=== PATIENT | male | born 1945 | race Caucasian/White ===

== ENCOUNTER 2021-11-08 09:16 | Emergency (ER) | payer MEDICARE ==
[2021-11-08] MEDS ORDERED: Sodium Chloride 0.9% 1000 ML 1,000 ML IV STA (09:41)
--- NOTE | 2021-11-08 09:47 | ERPHSYRPT ---
- History of Present Illness Historian: patient Exam Limitations: no limitations Patient Subjective Stated Complaint: Pt states "I have had diarrhea for awhile now and the left side of my belly just hurts." Triage Nursing Assessment: PT presented alert and oriented X 3, skin wpd Pt ambulates with an upright steady gait, able to speak in clear full sentences pt in no apparent respiratory distress. Physician History: 76 yo wm w generalized abdominal pain x 1 wk which is worse in LUQ and rated 8/10 but has been up to 10. Pain is described as pressure/cramping and is worse w movement. He has had diarrhea [id number]. Pt denies nausea/vomiting/fever/chest pain/cough/coryza/melena/hematochezia/dysuria/hematuria. He was told in the past that he had gallstones. He has been fully vaccinated w booster for CV19. Timing/Duration: other (1wk) Activities at Onset: rest Quality: cramping, pressure Abdominal Pain Onset Location: LLQ, generalized abdomen Pain Radiation: no radiation Severity of Pain-Max: severe Severity of Pain-Current: severe Modifying Factors: Improves With: movement (Worse w movement) Associated Symptoms: diarrhea ([id number]), No back, No chest pain, No diaphoresis, No fever/chills, No fatigue, No headache, No heartburn, No loss of appetite, No nausea, No neck pain, No rash, No shortness of breath, No syncope, No vomiting, No weakness Previous symptoms: no prior history Allergies/Adverse Reactions: crab Allergy (Severe, Verified 11/08/21 09:31) Swelling iodine Allergy (Severe, Verified 11/08/21 09:31) Swelling Home Medications: Theophylline Anhydrous 300 mg* [Theodur 300MG] 300 mg PO BID 11/08/21 [History] Hx Tetanus, Diphtheria Vaccination/Date Given: No Hx Influenza Vaccination/Date Given: Yes Hx Pneumococcal Vaccination/Date Given: No Immunizations Up to Date: Yes Travel Risk - International Travel Have you traveled outside of the country in past 3 weeks: No - Coronavirus Screening Are you exhibiting any of the following symptoms?: Yes Symptoms: Vomiting/Diarrhea - Vaccine Status Have you recieved a Covid-19 vaccination: Yes Mine [employer]: Moderna - Vaccination Dates Date of 2cond Vaccination (if applicable): 01/2021 Comment: booster in september 2021 - Review of Systems Constitutional: No Symptoms Eyes: No Symptoms Ears, Nose, & Throat: No Symptoms Respiratory: No Symptoms Cardiac: No Symptoms Abdominal/Gastrointestinal: No Symptoms, Abdominal Pain, Diarrhea Genitourinary Symptoms: No Symptoms Musculoskeletal: No Symptoms Skin: No Symptoms Neurological: No Symptoms Psychological: No Symptoms Endocrine: No Symptoms Hematologic/Lymphatic: No Symptoms Immunological/Allergic: No Symptoms - Past Medical History Pertinent Past Medical History: Yes Neurological History: No Pertinent History ENT History: No Pertinent History Cardiac History: Hypertension Respiratory History: Asthma, COPD Endocrine Medical History: No Pertinent History Musculoskeletal History: Arthritis GI Medical History: GERD, Gallbladder Disease History: Other Psycho-Social History: No Pertinent History Male Reproductive Disorders: No Pertinent History Other Medical History: prostate cancer - Past Surgical History Past Surgical History: Yes Other Surgical History: prostate - Social History Smoking Status: Former smoker Exposure to second hand smoke: Yes Drug Use: none Patient Lives Alone: No Significant Family History: no pertinent family hx - Nursing Vital Signs Nursing Vital Signs: Initial Vital Signs Temperature 98.6 F 11/08/21 09:24 Pulse Rate 120 H 11/08/21 09:24 Respiratory Rate 24 11/08/21 09:24 Blood Pressure 99/71 11/08/21 09:24 O2 Sat by Pulse Oximetry 98 11/08/21 09:24 Pain Scale Pain Intensity 0 Tachy/systolic 99 - Physical Exam General Appearance: no apparent distress Eye Exam: PERRL/EOMI, eyes nml inspection Ears, Nose, Throat Exam: normal ENT inspection, TMs normal, pharynx normal, moist mucous membranes Neck Exam: normal inspection, non-tender, supple, full range of motion, No meningismus, No mass, No Brudzinski, No Kernig's, No carotid bruit Respiratory Exam: airway intact, wheezing (Occ B), No respiratory distress Cardiovascular Exam: tachycardia, No murmur Gastrointestinal/Abdomen Exam: soft, tenderness (Diffuse, worse LUQ), No distention Back Exam: normal inspection, normal range of motion Extremity Exam: normal inspection, normal range of motion Neurologic Exam: alert, oriented x 3, cooperative, netezza developer II-XII nml as tested, normal mood/affect, sensation nml Skin Exam: normal color, warm Lymphatic Exam: No adenopathy SpO2 Interpretation: normal SpO2: 98 O2 Delivery: Room Air - Course Nursing assessment & vital signs reviewed: Yes EKG Interpreted by Me: RATE (Sinus tach/R100/Normal QT-QTc/Nonspecific T-wave abnormality/Low voltage vs poor R wave progression) - CT Exams Abdomen/Pelvis CT Interpretation: Discussed w/radiologist (Mild diverticulitis/Distended gallbladder w stones) - Radiology Ultrasound Exam Gallbladder Ultrasound: discussed w/radiologist (Cholelithiasis wo cholecystitis) Ordered Tests: Active Orders 24 hr Category Date Time Status EKG-ER Only STAT Care 11/08/21 09:41 Completed IV Insertion STAT Care 11/08/21 09:41 Completed ABDOMEN AND PELVIS W/0 CONTRAS [CT] Stat Exams 11/08/21 10:52 Completed GALLBLADDER [US] Stat Exams 11/08/21 12:25 Completed AMYLASE Stat Lab 11/08/21 09:40 Completed CBC W DIFF Stat Lab 11/08/21 09:40 Completed CMP Stat Lab 11/08/21 09:40 Completed LIPASE Stat Lab 11/08/21 09:40 Completed TROPONIN Q3H Lab 11/08/21 09:40 Completed TROPONIN Q3H Lab 11/08/21 12:04 Completed UA W/RFX UR CULTURE Stat Lab 11/08/21 10:30 Completed Medication Summary Discontinued Medications Generic Name Dose Route Start Last Admin Trade Name Freq PRN Reason Stop Dose Admin Sodium Chloride 1,000 mls @ 999 mls/hr 11/08/21 09:41 11/08/21 11:09 Sodium Chloride 0.9% 1000 Ml IV 11/08/21 10:41 Infused .Q1H1M STA Infusion Sodium Chloride Confirm 11/08/21 09:56 Sodium Chloride 0.9% 1000 Ml Administered 11/08/21 09:57 Dose 1,000 mls @ ud .ROUTE .STK-MED ONE Lab/Rad Data: Laboratory Result Diagrams 11/08/21 09:40 11/08/21 09:40 Laboratory Results 11/08/21 11/08/21 11/08/21 Range/Units 12:04 10:30 09:40 WBC (4.0-10.5) K/mm3 RBC (4.1-5.6) M/mm3 Hgb (12.5-18.0) gm/dl Hct (42-50) % MCV (78-100) fl MCH (26-32) pg MCHC (32-36) g/dl RDW (11.5-14.0) % Plt Count (150-450) K/mm3 MPV (7.5-11.0) fl Gran % (36.0-66.0) % Eos # (Auto) (0-0.5) Absolute Lymphs (auto) (1.0-4.6) Absolute Monos (auto) (0.0-1.3) Lymphocytes % (24.0-44.0) % Monocytes % (0.0-12.0) % Eosinophils % (0.00-5.0) % Basophils % (0.0-0.4) % Absolute Granulocytes (1.4-6.9) Basophils # (0-0.4) Sodium (137-145) mmol/L Potassium (3.5-5.1) mmol/L Chloride (98-107) mmol/L Carbon Dioxide (22-30) mmol/L Anion Gap (5-15) MEQ/L BUN (9-20) mg/dL Creatinine (0.66-1.25) mg/dL Estimated GFR ML/MIN Glucose (74-106) mg/dL Calcium (8.4-10.2) mg/dL Total Bilirubin (0.2-1.3) mg/dL AST (17-59) U/L ALT (0-50) U/L Alkaline Phosphatase (38-126) U/L Troponin I < 0.012 < 0.012 (0.000-0.034) ng/mL Serum Total Protein (6.3-8.2) g/dL Albumin (3.5-5.0) g/dL Amylase (30-110) U/L Lipase (23-300) U/L Urine Color YELLOW (YELLOW) Urine Appearance CLEAR (CLEAR) Urine pH 6.0 (5-6) Ur Specific [place] 1.014 (1.005-1.025) Urine Protein NEGATIVE (Negative) Urine Ketones NEGATIVE (NEGATIVE) Urine Blood NEGATIVE (0-5) Rai/ul Urine Nitrite NEGATIVE (NEGATIVE) Urine Bilirubin NEGATIVE (NEGATIVE) Urine Urobilinogen NEGATIVE (0-1) mg/dL Ur Leukocyte Esterase NEGATIVE (NEGATIVE) Urine WBC (Auto) NONE (0-5) /HPF Urine RBC (Auto) NONE (0-2) /HPF U Epithel Cells (Auto) NONE (FEW) /HPF Urine Bacteria (Auto) NONE (NEGATIVE) /HPF Urine Culture Reflexed NO (NO) Urine Glucose NEGATIVE (NEGATIVE) mg/dL Slides for Path Review 11/08/21 11/08/21 Range/Units 09:40 09:40 WBC 5.0 (4.0-10.5) K/mm3 RBC 3.59 L (4.1-5.6) M/mm3 Hgb 10.3 L (12.5-18.0) gm/dl Hct 33.3 L (42-50) % MCV 92.8 (78-100) fl MCH 28.7 (26-32) pg MCHC 30.9 L (32-36) g/dl RDW 17.4 H (11.5-14.0) % Plt Count 457 H (150-450) K/mm3 MPV 10.0 (7.5-11.0) fl Gran % 65.8 (36.0-66.0) % Eos # (Auto) 0.76 H (0-0.5) Absolute Lymphs (auto) 0.32 L (1.0-4.6) Absolute Monos (auto) 0.62 (0.0-1.3) Lymphocytes % 6.4 L (24.0-44.0) % Monocytes % 12.4 H (0.0-12.0) % Eosinophils % 15.2 H (0.00-5.0) % Basophils % 0.2 (0.0-0.4) % Absolute Granulocytes 3.29 (1.4-6.9) Basophils # 0.01 (0-0.4) Sodium 135 L (137-145) mmol/L Potassium 4.7 (3.5-5.1) mmol/L Chloride 103 (98-107) mmol/L Carbon Dioxide 21 L (22-30) mmol/L Anion Gap 15.9 H (5-15) MEQ/L BUN 21 H (9-20) mg/dL Creatinine 1.46 H (0.66-1.25) mg/dL Estimated GFR 49.6 ML/MIN Glucose 96 (74-106) mg/dL Calcium 9.2 (8.4-10.2) mg/dL Total Bilirubin 0.60 (0.2-1.3) mg/dL AST 15 L (17-59) U/L ALT 11 (0-50) U/L Alkaline Phosphatase 85 (38-126) U/L Troponin I (0.000-0.034) ng/mL Serum Total Protein 7.2 (6.3-8.2) g/dL Albumin 4.1 (3.5-5.0) g/dL Amylase 63 (30-110) U/L Lipase 69 (23-300) U/L Urine Color (YELLOW) Urine Appearance (CLEAR) Urine pH (5-6) Ur Specific [place] (1.005-1.025) Urine Protein (Negative) Urine Ketones (NEGATIVE) Urine Blood (0-5) Rai/ul Urine Nitrite (NEGATIVE) Urine Bilirubin (NEGATIVE) Urine Urobilinogen (0-1) mg/dL Ur Leukocyte Esterase (NEGATIVE) Urine WBC (Auto) (0-5) /HPF Urine RBC (Auto) (0-2) /HPF U Epithel Cells (Auto) (FEW) /HPF Urine Bacteria (Auto) (NEGATIVE) /HPF Urine Culture Reflexed (NO) Urine Glucose (NEGATIVE) mg/dL Slides for Path Review YES - Progress Progress: improved Progress Note: 11/08/21 13:13 1L NS Bolus 11/08/21 13:16 Pt refuses all pain meds Counseled pt/family regarding: lab results, diagnosis, need for follow-up, rad results - Departure Departure Disposition: Home Clinical Impression: Diverticulitis, Cholelithiasis Condition: Stable Critical Care Time: No Referrals: DOCTOR,NO FAMILY [Primary Care Provider] - Follow up/PCP as directed Instructions: Diverticulitis (DC), Acute Abdomen (Belly Pain), Adult (DC) Additional Instructions: Start Cipro twice a day for 10 days and Flagyl three times a day for 10 days Fluids Follow up with your family MD in 1-2 days Return to ER for increasing pain or temperature greater than 100.5 Prescriptions: Ciprofloxacin HCl [Cipro] 500 mg PO TID #20 tablet Metronidazole 500 mg [Flagyl 500 MG] 500 mg PO TID #30 tablet
[2021-11-08] MEDS ORDERED: Sodium Chloride 0.9% 1000 ML 1,000 ML ONE (09:56)
[2021-11-08 10:05] LABS: Absolute Neutrophil Ct (ANC) 3.29 (1.4-6.9); BASOPHIL % 0.2 % (0.0-0.4); Basophil (Absolute #) 0.01 (0-0.4); Eosinophil % 15.2 % (0.00-5.0); Eosinophil (Absolute #) 0.76 (0-0.5); Hematocrit 33.3 % (42-50); Hemoglobin 10.3 gm/dl (12.5-18.0); Lymphocyte (Absolute #) 0.32 (1.0-4.6); Lymphocytes % 6.4 % (24.0-44.0); Mean Cell Volume 92.8 fl (78-100); Mean Corpuscular Hemoglobin 28.7 pg (26-32); Mean Corpuscular Hgb Concent. 30.9 g/dl (32-36); Monocyte (Absolute #) 0.62 (0.0-1.3); Monocytes % 12.4 % (0.0-12.0); Neutrophil % 65.8 % (36.0-66.0); Platelet Count 457 K/mm3 (150-450); Red Blood Count 3.59 M/mm3 (4.1-5.6); Red Cell Distribution Width 17.4 % (11.5-14.0)
[2021-11-08 10:13] LABS: ALBUMIN 4.1 g/dL (3.5-5.0); ANION GAP 15.9 MEQ/L (5-15); BILIRUBIN,TOTAL 0.6 mg/dL (0.2-1.3); Calcium 9.2 mg/dL (8.4-10.2); Creatinine 1 1.46 mg/dL (0.66-1.25); EST GLOMERULAR FILTRATION RATE 49.6 ML/MIN; Potassium 4.7 mmol/L (3.5-5.1); Total Protein 7.2 g/dL (6.3-8.2)
[2021-11-08 10:55] LABS: Slide Review 1 YES
[2021-11-08 11:17] LABS: Appearance CLEAR (CLEAR); Bilirubin NEGATIVE (NEGATIVE); Blood NEGATIVE Ery/ul (0-5); Glucose NEGATIVE (NEGATIVE); Ketones NEGATIVE (NEGATIVE); Leukocyte Esterase NEGATIVE (NEGATIVE); Nitrite NEGATIVE (NEGATIVE); Protein,Urine Dip NEGATIVE (Negative); Specific Gravity 1.014 (1.005-1.025); Urobilinogen NEGATIVE mg/dL (0-1)
--- NOTE | 2021-11-08 12:24 | XRAY ---
Indication: Pain. Multiple contiguous axial images obtained through the abdomen and pelvis without contrast. Comparison: None Lung bases demonstrates moderate scattered fibrosis/scarring. Heart not enlarged. Noncontrasted stomach and bowel loops nonobstructed. Normal appendix. Sigmoid colon and lesser degree descending demonstrates diverticulosis. Mid to proximal sigmoid colon demonstrates mild wall thickening with pericolonic stranding favoring mild diverticulitis. No free fluid/air. Gallbladder is moderately distended with a few gallstones, largest 1.7 cm. No abnormal biliary distention. Prostate gland demonstrates a few prostate radiation seeds. Remaining liver, pancreas, spleen, adrenal glands, kidneys, ureters, and bladder are unremarkable for noncontrast exam. Moderate scattered aortoiliac calcifications with distal aortic ectasia up to 2.7 cm in diameter. Osseous structures intact with mild osteopenia. Impression: 1. Scattered colonic diverticulosis. Mild diverticulitis proximal sigmoid colon without complications. 2. Distended gallbladder with gallstones. Sonogram may yield further information if clinically warranted. 3. Moderate aortoiliac calcifications with distal aortic ectasia.
[2021-11-08 12:27] VITALS: O2SAT 98
[2021-11-08 12:32] VITALS: PULSE 75
--- NOTE | 2021-11-08 13:10 | XRAY ---
Indication: Pain. Gallstones on same-day CT abdomen/pelvis. Two-dimensional gallbladder sonogram performed. Comparison: None Gallbladder moderately distended with multiple gallstones, largest 1.8 cm. No abnormal gallbladder wall thickening or pericholecystic fluid. Common bile duct measures 4.6 mm. No intrahepatic biliary distention. Remaining visualized liver, pancreas, and right kidney are sonographically unremarkable. Right kidney measures 11.1 cm in length. Impression: Cholelithiasis without cholecystitis or biliary distention.
[2021-11-08 13:17] VITALS: BP 121/79
== END 2021-11-08 13:31 | disposition home or self-care (01) ==
LOC: ED 09:16
DX: K57.92 Diverticulitis of intestine, part unspecified, without perforation or abscess without bleeding (principal); K80.20 Calculus of gallbladder without cholecystitis without obstruction; R19.7 Diarrhea, unspecified; I10 Essential (primary) hypertension
CPT/HCPCS: 36000; 36415; 74176; 76705; 80053; 81001; 82150; 83690; 84484; 85025; 93005; 96360; 99284